=== PATIENT | male | born 1960 | race Caucasian/White ===

== ENCOUNTER 2020-02-06 07:59 | Inpatient (IN) | payer OTHER ==
[~2020-02-06] VITALS: Ht 177.8 cm; Wt 84.0 kg
[~2020-02-06 07:59] MED LIST: AMIT25TA9 PO; DULO1CAP5 PO; IBUP800T24 PO; LISI-648 PO; MORP1TAB12 PO; OMEP20TA PO
[2020-02-06] MEDS ORDERED: PREGABALIN CAPSULE 75 MG CAP PO ONE (08:15)
[2020-02-06] MEDS ORDERED: CELECOXIB 100 MG CAP PO ONE (08:15)
[2020-02-06] MEDS ORDERED: ACETAMINOPHEN IV 1000 MG/100ML (10MG/ML) IV ONE (08:15)
[2020-02-06] MEDS ORDERED: ceFAZolin 1GM/50ML 100 ML IV ONE (08:43)
[2020-02-06] MEDS: BUPIVACAINE 0.25% INJ 50ML VIAL ONE ×2 (09:26→12:40)
[2020-02-06] MEDS ORDERED: TRANEXAMIC ACID 20 ML ONE (09:26)
[2020-02-06] MEDS: VANCOMYCIN HCL 1000 MG VL ONE ×2 (09:27→12:35)
[2020-02-06] MEDS ORDERED: KETOROLAC TROMETH 30 MG/ML 1ML VIAL ONE (09:29)
[2020-02-06] MEDS ORDERED: MORPHINE SULF(PF) 0.5MG/ML 10ML VIAL ONE (09:29)
[2020-02-06] MEDS ORDERED: SUCCINYLCHOLINE CHLORIDE 20 MG/ML 10ML VIAL IV ONE (10:26)
[2020-02-06] MEDS ORDERED: LIDOCAINE HCL (LOCAL ANESTH.) 0.5 % 50ML MDV IJ ONE (10:26)
[2020-02-06] MEDS ORDERED: MIDAZOLAM HCL 1MG/1ML-2 ML VIAL ONE (10:28)
[2020-02-06] MEDS ORDERED: METOCLOPRAMIDE HCL 5MG/ml INJ 2ml VIAL ONE (10:29)
[2020-02-06] MEDS ORDERED: ETOMIDATE (2MG/ML) 20ML VIAL IV ONE (10:31)
[2020-02-06] MEDS ORDERED: ROCURONIUM 10MG/ML 10ML VIAL IV ONE (10:32)
[2020-02-06] MEDS ORDERED: fentaNYL CITRATE 100 MCG/2 ML VL ONE (10:33)
[2020-02-06] MEDS ORDERED: DexAMETHasone SOD PHOS 10MG/1ML VIAL INJ ONE (10:46)
[2020-02-06] MEDS ORDERED: NALOXONE HCL 0.4 MG/ML VIAL IV PRN (11:00)
[2020-02-06] MEDS ORDERED: ONDANSETRON HCL 4 MG/2 ML VIAL IV PRN ×2 (11:00→12:45)
[2020-02-06] MEDS ORDERED: HYDROmorphone HCL 2 MG/ML VL IV PRN (11:00)
[2020-02-06] MEDS ORDERED: PROMETHAZINE HCL 25 MG/ML 1ML IV PRN (11:00)
[2020-02-06] MEDS ORDERED: MEPERIDINE HCL (50 MG/ML) 1 ML VIAL ONE (11:05)
[2020-02-06] MEDS ORDERED: NEOSTIGMINE 1 MG/ML INJ (10mg/10ML VIAL) ONE (12:37)
[2020-02-06] MEDS ORDERED: GLYCOPYRROLATE 0.2 MG/ML 1ML VIAL ONE (12:37)
[2020-02-06] MEDS ORDERED: OXYCODONE W/ ACETAMINOPHEN 5/325MG TABLET PO PRN (12:45)
[2020-02-06] MEDS ORDERED: MORPHINE SULF INJ 2 MG/ML SYRINGE 1ML IV PRN (12:45)
[2020-02-06] MEDS ORDERED: NITROGLYCERIN 0.4 MG SL TAB SL PRN (12:45)
[2020-02-06] MEDS ORDERED: ACETAMINOPHEN 325 MG TAB PO PRN (12:45)
[2020-02-06] MEDS ORDERED: traMADol HCL 50 MG TAB PO PRN (13:00)
[2020-02-06] MEDS ORDERED: DOCUSATE SOD 100 MG CAP PO ONE (13:00)
[2020-02-06] MEDS ORDERED: ENOXAPARIN SOD 40 MG/0.4 ML SYRINGE SC ONE (13:00)
[2020-02-06] MEDS: HYDROmorphone HCL 2 MG/ML VL IV PRN ×6 (13:20→20:55)
[2020-02-06 16:30] VITALS: BP 148/74
--- NOTE | 2020-02-06 16:30 | NUR ---
Telemetry admit from OR JESSICA JACOB admitted to Telemetry unit after SBAR received. Patient s/p left total shoulder replacement. Dressing clean, dry, intact. Patient oriented to VICKY MCKEON RN primary RN, unit, room, bed, and unit policies regarding patient care and visiting hours. Patient now on continuous telemetry monitoring, tele box # 49 and telemetry reading on arrival to unit is Sinus Tach 103 HR. Patient placed on bedside oxygen, weighed by bedscale and encouraged to call if they need something. All questions and concerns addressed, patient verbalized understanding.
[2020-02-06 17:00] VITALS: BP 148/74
[2020-02-06] MEDS: SODIUM CHLOR 0.9% PF (SALINE LOCK) 10ML VIAL/SYR IV SCH ×2 (17:25→22:17)
[2020-02-06] MEDS: LACTATED RINGER'S 1,000 ML IV SCH ×2 (17:25→22:45)
[2020-02-06] MEDS: ceFAZolin 1GM/50ML 50 ML IV SCH ×2 (17:25→17:48)
[2020-02-06] MEDS: DULoxetine HCL 30 MG CAP PO SCH ×2 (17:26→22:17)
[2020-02-06] MEDS: MORPHINE SULFATE 10 MG/5 ML ORAL SOLN PO SCH ×2 (17:26→22:17)
[2020-02-06] MEDS: KETOROLAC TROMETH 30 MG/ML 1ML VIAL IV SCH (17:47)
[2020-02-06] MEDS ORDERED: KETOROLAC TROMETH 30 MG/ML 1ML VIAL IV PRN (18:00)
[2020-02-06 22:00] VITALS: BP 106/72
[2020-02-06] MEDS ORDERED: LISINOPRIL 10 MG TAB PO SCH (22:00)
[2020-02-06] MEDS ORDERED: AMITRIPTYLINE HCL 25 MG TAB PO SCH (22:00)
[2020-02-06] MEDS: DOCUSATE SOD 100 MG CAP PO SCH (22:17)
[2020-02-06] MEDS: MORPHINE SULF 15mg ER tab PO SCH (22:18)
[2020-02-07] MEDS: ceFAZolin 1GM/50ML 50 ML IV SCH (01:13)
[2020-02-07] MEDS: HYDROmorphone HCL 2 MG/ML VL IV PRN ×3 (01:46→07:58)
[2020-02-07 05:00] VITALS: BP 118/64
[2020-02-07] MEDS: SODIUM CHLOR 0.9% PF (SALINE LOCK) 10ML VIAL/SYR IV SCH ×2 (06:09→14:59)
[2020-02-07] MEDS: KETOROLAC TROMETH 30 MG/ML 1ML VIAL IV SCH ×3 (06:09→12:06)
[2020-02-07] MEDS: MORPHINE SULFATE 10 MG/5 ML ORAL SOLN PO SCH ×2 (06:10→14:58)
[2020-02-07] MEDS: DULoxetine HCL 30 MG CAP PO SCH ×2 (06:10→14:56)
--- NOTE | 2020-02-07 07:30 | NUR ---
Opening Shift Note Received report and assumed care of patient, awake and alert. No S/S of distress/SOB but c/o pain. Instructed on POC,nursing routines,call light within reach patient reminded instructed to call for assistance and PRN, will continue to monitor for changes Q1hr and PRN.
[2020-02-07 07:45] LABS: Hematocrit 39.9 % (41.0-53.0); Hemoglobin 13.3 g/dL (13.5-17.5)
[2020-02-07 08:03] LABS: Potassium 4.2 mmol/L (3.5-5.1)
[2020-02-07 08:13] LABS: Albumin 3.4 g/dL (3.4-5.0); BUN/Creatinine Ratio 17.3; Bilirubin, Total 0.7 mg/dL (0.2-1.0); Calcium 8.2 mg/dL (8.5-10.1); Total Protein 6.1 g/dL (6.4-8.2)
[2020-02-07] MEDS: LACTATED RINGER'S 1,000 ML IV SCH (08:45)
[2020-02-07 09:00] VITALS: BP 109/72
--- NOTE | 2020-02-07 09:00 | NUR ---
ORTHOPEDIC STAFF HERE TO ADJUST SLING/IMMOBILIZER
[2020-02-07] MEDS ORDERED: PANTOPRAZOLE 40 MG TAB PO SCH (10:00)
[2020-02-07] MEDS ORDERED: ENOXAPARIN SOD 40 MG/0.4 ML SYRINGE SC SCH (10:00)
[2020-02-07] MEDS: MORPHINE SULF 15mg ER tab PO SCH (10:34)
[2020-02-07] MEDS: DOCUSATE SOD 100 MG CAP PO SCH (10:34)
--- NOTE | 2020-02-07 11:25 | NUR ---
ERIC CALLED (PASSWORD VERIFIED) INFORMED AND UPDATED WIP PLAN OF CARE,DISCHARGE PLAN AND AWAITING FOR HOME HEALTH ARRANGEMENT
--- NOTE | 2020-02-07 11:50 | NUR ---
Attempted PT treatment. Pt states he was already up walking to bathroom and would like to rest.
[2020-02-07 13:00] VITALS: BP 131/67
--- NOTE | 2020-02-07 14:33 | NUR ---
assessment Patient is a 59 year old male who is alert and oriented. Patients cognitive abilities are intact. Prior to admission patient lived home with family and functioned independently. Patient informed me he is able to care for his own ADLs. Per patient he will return home to his prior living arrangements post discharge and family will transport him home. Patient has a shoulder replacement (Left). Patient is right handed. Patient informed me he will have help once he is home. Patients PCP is Dr Shanks. Patient feels safe returning home on discharge. Patient has no post discharge needs identified at this time. I informed patient he has a right to speak to a social service coordinator regarding all care. I informed patient he has a right to participate in any and all discharge planning. Patient does not have a POA and advanced directive. I have offered patient information on POA and advanced directives. I informed the patient the advantages and benefits of having an Advanced Directive. Patient verbalized understanding and agreed to discharge plan. Addendum: 02/07/20 at 1439 by Sherrill MONK Amended: Links added.
[2020-02-07 15:16] VITALS: BP 131/67
--- NOTE | 2020-02-07 15:45 | NUR ---
CALLED INFORMED OF PATIENT DISCHARGE
--- NOTE | 2020-02-07 16:20 | NUR ---
Discharge instructions given as ordered. Encourage to follow up with PMD and as instructed. All questions and concerns addressed. Patient verbalized understanding. Medication reconciliation form completed and copy given to patient. IV removed with catheter intact, pressure dressing applied. Telemetry unit returned to ICU. Patient taken to vehicle via wheelchair with all personal belongings, accompanied by staff ,family member at front lobby for pickler helper. No distress noted at time of departure.
== END 2020-02-07 16:20 | disposition home health service (06) | DRG 483 ==
LOC: OVERFLOW 07:59 → EDSTATUS 12:00 → WEST WING 16:21 → TELE-WESTW 16:30
PROVIDERS: ADMIT Orthopaedic Surgery Adult Reconstructive Orthopaedic Surgery; ATTEND Hospitalist
PROC: 0LS40ZZ Reposition Left Upper Arm Tendon, Open Approach (ICD-10-PCS; 2020-02-06)
PROC: 0RRK00Z Replacement of Left Shoulder Joint with Reverse Ball and Socket Synthetic Substitute, Open Approach (ICD-10-PCS; principal; 2020-02-06 10:22)
DX: T84.098A Other mechanical complication of other internal joint prosthesis, initial encounter (principal); M75.102 Unspecified rotator cuff tear or rupture of left shoulder, not specified as traumatic; Z96.612 Presence of left artificial shoulder joint; Y83.8 Other surgical procedures as the cause of abnormal reaction of the patient, or of later complication, without mention of misadventure at the time of the procedure; Z20.828 Contact with and (suspected) exposure to other viral communicable diseases; M19.112 Post-traumatic osteoarthritis, left shoulder; Y92.89 Other specified places as the place of occurrence of the external cause; Z91.040 Latex allergy status
CPT/HCPCS: 36415; 73020; 80053; 85014; 85018; 86850; 86900; 86901; 97163; G0378; J0131; J0330; J0690; J1100; J1885; J2250; J3490

== ENCOUNTER 2024-11-02 23:38 | Inpatient (IN) | payer OTHER, MEDICAID ==
[~2024-11-02] VITALS: Ht 177.8 cm; Wt 90.7 kg
[~2024-11-02 23:38] MED LIST changes: +AMIT25TA20 PO; -AMIT25TA9 PO; +IBUP-1456 PO; -IBUP800T24 PO; -LISI-648 PO; +LISI10TA34 PO
--- NOTE | 2024-11-03 00:18 | ED.PDOC ---
HPI Comments 63 year old male presents to the ED via EMS with a chief complaint of chest pain onset today (11/02/24) about 1 hour prior to ED arrival. Patient began experiencing Lt sided chest pain radiating to LT arm, rates pain 9/10. Patient states for the past day he had been experiencing nausea/vomiting, shortness of breath, lightheadedness, palpitations. Upon EMS arrival BP was 166/100, 1 tab of Nitro and 324 mg of Aspirin was given prior to ED arrival. PMHx HTN, DM, HLD - patient is not complaint with medication. Denies fevers, chills, cough, congestion, dysuria, hematuria, hematemesis, melena. No other symptoms or modifying factor present at this time. Chief Complaint: Chest Pain Time Seen by MD: 00:05 Reviewed Notes: Medications, Allergies Allergies: Coded Allergies: Latex (Verified Allergy, Unknown, 02/01/20) BLISTERS Uncoded Allergies: ADHESIVES (Allergy, Unknown, 02/01/20) BLISTERS Home Meds Reported Medications Ibuprofen (Ibuprofen) 800 Mg Tab, 800 MG PO PRN, MG 02/01/20 Amitriptyline Hcl (Amitriptyline Hcl) 25 Mg Tab, 25 MG PO HS for 30 Days, MG 02/01/20 Morphine Sulfate (Morphine Sulfate Cr) 15 Mg Tab, 15 MG PO TID, TAB 02/01/20 Morphine Sulfate (Morphine Sulfate Er) 15 Mg Tab, 15 MG PO BID, TAB 02/01/20 Lisinopril (Lisinopril) 10 Mg Tab, 10 MG PO HS for 30 Days, MG 02/01/20 Duloxetine HCl (Duloxetine HCl) 30 Mg Cap, 30 MG PO TID, CAP 02/01/20 Omeprazole (Gnp Omeprazole) 20 Mg Tab, 1 TAB PO DAILY, #90 TAB 1 Refill 02/01/20 Information Source: Patient, Emergency Med Personnel Mode of Arrival: EMS Severity: Moderate Timing: Hours Duration: Since onset Prehospital treatment: Other (Nitro, Aspirin ) Location: Chest (L) Radiation: Arm (L) Quality: Sharp Onset: At Rest Cardiac Risk Factors: Hyperlipidemia, HTN, Diabetes PE Risk Factors: None History of: None Modifying Factors: Nothing Associated Signs and Symptoms: SOB, Palpitations, N/V Vital Signs Vital Signs Date Time Temp Pulse Resp B/P (MAP) Pulse Ox O2 Delivery O2 Flow Rate FiO2 7/17/25 03:15 99.2 80 20 130/85 (100) 94 99.2 Physical Exam PHYSICAL EXAM: General: Awake, alert and oriented. No acute distress. Skin: Skin in warm, dry and intact. Appropriate color for ethnicity. HEENT: The head is normocephalic and atraumatic. Conjunctivae are clear without exudates or hemorrhage. Sclera is non-icteric. EOM are intact. No signs of nystagmus. Eyelids are normal in appearance without swelling or lesions. Oral mucosa is pink and moist Neck: The neck is supple with normal range of motion. No JVD. Cardiac: Heart rate and rhythm are normal. No murmurs, gallops, or rubs are auscultated. Respiratory: No signs of respiratory distress. Lung sounds are clear in all lobes bilaterally without rales, rhonchi, or wheezes. Abdominal: Abdomen is soft, non-tender without distention, guarding or rigidity. Bowel sounds are present and normoactive in all four quadrants. Extremities: Upper and lower extremities are atraumatic in appearance without deformity or edema. Neurological: The patient is awake, alert and oriented to person, place, and time with normal speech. Speech is clear. There is no facial asymmetry. Psychiatric: Appropriate mood and affect. Good judgement and insight. Review of Systems: As stated in HPI Past Medical History PAST MEDICAL HISTORY: DM, High Lipids, HTN Family History Family History: Reviewed,noncontributory to illness, No family hx of Cancer, No family hx of DM, No family hx of Heart alysia, No family hx of HTN, No family hx ofKidney alysia, No family hx of Liver alysia, No family hx of Lung alysia, No family hx of Stroke Social History Smoker: Non-Smoker Alcohol: Denies ETOH Use Drugs: Denies Drug Use Lives In: Home EKG EKG : Pulse Rate (adult): 75 Cardiac Rhythm: NSR Comments No STEMI Was a procedure done? Was a procedure done?: No CP Differential Dx Differential Diagnosis: Other (Differential diagnoses considered include acute ischemic coronary syndrome, aortic dissection, cardiac tamponade, mediastinitis, pulmonary embolus, pneumothorax, tension pneumothorax, esophageal rupture, coronary artery vasospasm, myocarditis, pericarditis, pneumonia, pulmonary edema, esophageal tear, pancreatitis, aortic stenosis, dilated cardiomyopathy, hypertrophic cardiomyopathy, mitral valve prolapse, malignancy, pleuritis, pneumomediastinum, primary pulmonary hypertension, cholecystitis, esophageal spasm, esophagus, gastritis, GERD, peptic ulcer disease, costochondritis, fibromyalgia, rib fracture, herpes zoster, radicular syndromes, thoracic outlet syndrome, somatization.) X-Ray, Labs, Meds, VS Vital Signs Date Time Temp Pulse Resp B/P (MAP) Pulse Ox O2 Delivery O2 Flow Rate FiO2 11/03/24 03:15 99.2 80 20 130/85 (100) 94 99.2 11/03/24 02:37 77 11/03/24 01:35 97.5 85 20 122/76 (91) 97 97.5 11/03/24 01:35 85 11/03/24 01:17 80 20 122/76 11/03/24 00:45 75 11/03/24 00:43 75 11/02/24 23:45 78 11/02/24 23:40 98.9 95 16 149/82 (104) 98 98.9 Lab Test 11/03/24 03:19 11/03/24 01:18 11/03/24 00:23 Range/Units Troponin I High Sensitivity < 3 L < 3 L < 3 L </=54 ng/L White Blood Count 8.7 4.4-10.8 10^3/uL Red Blood Count 4.74 4.5-5.90 10^6/uL Hemoglobin 14.3 13.5-17.5 g/dL Hematocrit 42.1 41.0-53.0 % Mean Corpuscular Volume 89.0 80.0-100.0 fL Mean Corpuscular Hemoglobin 30.3 28.0-32.0 pg Mean Corpuscular Hemoglobin Concent 34.0 32.0-36.0 g/dL Red Cell Distribution Width 13.6 11.8-14.3 % Platelet Count 261 140-450 10^3/uL Mean Platelet Volume 6.9 6.9-10.8 fL Neutrophils (%) (Auto) 57.6 37.0-80.0 % Lymphocytes (%) (Auto) 33.7 10.0-50.0 % Monocytes (%) (Auto) 6.8 0.0-12.0 % Eosinophils (%) (Auto) 1.4 0.0-7.0 % Basophils (%) (Auto) 0.5 0.0-2.0 % Neutrophils # (Auto) 5.0 1.6-8.6 10 ^3/uL Lymphocytes # (Auto) 2.9 0.4-5.4 10 ^3/uL Monocytes # (Auto) 0.6 0-1.3 10 ^3/uL Eosinophils # (Auto) 0.1 0-0.8 10 ^3/uL Basophils # (Auto) 0 0-0.2 10 ^3/uL Nucleated Red Blood Cells 0.1 % Sodium Level 139 136-145 mmol/L Potassium Level 4.1 3.5-5.1 mmol/L Chloride Level 105 98-107 mmol/L Carbon Dioxide Level 28 20-31 mmol/L Anion Gap 6 5-15 Blood Urea Nitrogen 10 9-23 mg/dL Creatinine 1.13 0.700-1.30 mg/dL Glomerular Filtration Rate Calc 73 >90 mL/min BUN/Creatinine Ratio 8.8 L 10.0-20.0 Serum Glucose 122 H 74-106 mg/dL Calcium Level 9.6 8.7-10.4 mg/dL B-Type Natriuretic Peptide 15.00 0-100 pg/mL Current Medications Medications (Trade) Dose Ordered Sig/Chidi Route Start Time Stop Time Status Last Admin Morphine Sulfate 2 mg ONCE ONCE IV 11/03/24 00:15 11/03/24 00:16 DC 11/03/24 01:17 Acetaminophen (Tylenol Tablet Or Capsule) 1,000 mg ONCE ONCE PO 11/03/24 00:15 11/03/24 00:16 DC 11/03/24 01:17 Time of 1ST Reevaluation: 00:35 Reevaluation 1ST: Unchanged Patient Education/Counseling: Need For Follow Up Family Education/Counseling: No Family Present SEPSIS Sepsis Screen Physician Orders Electrocardigram (11/02/24 23:49) Electrocardigram (11/03/24 02:49) Chest Xray 1 View (11/03/24 00:15) Vital Signs Q1HR (11/03/24 00:15) Vital Signs Date Time Temp Pulse Resp B/P (MAP) Pulse Ox O2 Delivery O2 Flow Rate FiO2 11/03/24 03:15 99.2 80 20 130/85 (100) 94 99.2 11/03/24 02:37 77 11/03/24 01:35 97.5 85 20 122/76 (91) 97 97.5 11/03/24 01:35 85 11/03/24 01:17 80 20 122/76 11/03/24 00:45 75 11/03/24 00:43 75 11/02/24 23:45 78 11/02/24 23:40 98.9 95 16 149/82 (104) 98 98.9 Laboratory Tests Test 11/03/24 00:23 White Blood Count 8.7 10^3/uL (4.4-10.8) Medications Medications Dose Ordered Sig/Chidi Route Start Time Stop Time Status Last Admin Dose Admin Acetaminophen 1,000 mg ONCE ONCE PO 11/03/24 00:15 11/03/24 00:16 DC 11/03/24 01:17 Morphine Sulfate 2 mg ONCE ONCE IV 11/03/24 00:15 11/03/24 00:16 DC 11/03/24 01:17 Departure 1 Departure Time of Disposition: 02:43 Impression: Primary Impression: Chest pain Disposition: ADMITTED INPATIENT Condition: Stable Comments MDM: 63-year-old male with risk factors with continued chest pain during the ED observation. Patient admitted to hospitalist service for further treatment, evaluation and monitoring. Extensive evaluation was performed in attempt to identify or rule out: (See differential diagnosis section) The following tests were ordered, and results were reviewed by me and discussed with patient: (See diagnostic results section) The following test were independently interpreted by me: EKG I reviewed and agreed with the following test results read by other providers: Chest x-ray Additional information was gathered from interviewing the following independent historians: EMS personnel Discussion of management or test interpretation with external physician/other qualified health healthcare liaison: N/A Decision regarding hospitalization or escalation of hospital level of care: Risk and benefits of admission for further treatment of patient's condition was considered. Due to patient's current clinical condition, high risk of decline and poor outcome if discharged and need for further inpatient management and monitoring, patient will be admitted to the hospital. Drug therapy requiring intensive monitoring for toxicity: N/A Parenteral controlled substances: IV morphine Decision regarding elective major surgery with identified patient or procedure risk factors: N/A Decision regarding emergency major surgery: N/A Decision not to resuscitate or to de-escalate care because of poor prognosis: N/A Diagnosis or treatment significantly limited by social determinants of health: N/A Critical Care Note Critical Care Time?: No Stability Stability form required: No Heart Score Heart Score: Heart Score Response (Comments) Value History Slightly Suspicious 0 EKG Repolarization Disturb 1 Age 45-64 1 Risk Factors 1 or 2 risk factors 1 Troponin Normal limit 0 Total 3 I personally scribed for SCARLETT MARTINEZ MD ([email or web address]) on 11/03/24 at 00:18. Electronically submitted by Gabi Martin ([email or web address]). I personally scribed for SCARLETT MARTINEZ MD ([email or web address]) on 11/03/24 at 00:45. Electronically submitted by Gabi Martin ([email or web address]). SCARLETT MARTINEZ MD Nov 03, 2024 00:18
[2024-11-03 00:36] LABS: Hematocrit 42.1 % (41.0-53.0); Hemoglobin 14.3 g/dL (13.5-17.5); Mean Corpuscular Hemoglobin 30.3 pg (28.0-32.0); Mean Corpuscular Volume 89.0 fL (80.0-100.0); Nucleated Red Blood Cells % 0.1 %
--- NOTE | 2024-11-03 01:06 | DVH ---
CHEST RADIOGRAPH Indication: cp Technique: Single frontal view of the chest was obtained COMPARISON: None FINDINGS: Lines and Tubes: None Lungs: Clear Pleura: No effusion. No pneumothorax. Cardiomediastinal contours: Unremarkable Bones: Unremarkable. Hardware within the left shoulder status post arthroplasty. Spinal cord stimula tor leads noted. IMPRESSION: 1. No acute disease.
[2024-11-03] MEDS: ACETAMINOPHEN 500 MG TAB or CAP PO ONE (01:17)
[2024-11-03] MEDS: MORPHINE SULFATE INJ 2 MG/ml SYRG IV ONE (01:17)
--- NOTE | 2024-11-03 01:33 | ECG ---
[facility] Test Date: 2024-11-03 Test Time: 00:43:41 Pat Name: JESSICA JACOB Department: ED Room: Gender: M Carbonizer Tester: ALEJANDRA : 1960 Requested By: EMERGENCY EMERGENCY Order Number: [id number] Reading MD: Measurements Intervals [place] Rate: 75 P: 40 IA: 156 QRS: 23 QRSD: 84 T: 26 QT: 382 QTc: 427 Interpretive Statements Sinus rhythm Probable left atrial enlargement Borderline repolarization abnormality Please click the below link to view image of tracing.
[2024-11-03 01:59] LABS: Chloride 105 mmol/L (98-107); Potassium 4.1 mmol/L (3.5-5.1); Sodium 139 mmol/L (136-145)
[2024-11-03 02:00] LABS: Anion Gap 6 (5-15); Calcium 9.6 mg/dL (8.7-10.4); Carbon Dioxide 28 mmol/L (20-31)
[2024-11-03 02:05] LABS: BUN/Creatinine Ratio 8.8 (10.0-20.0); Blood Urea Nitrogen 10 mg/dL (9-23)
[2024-11-03 02:08] LABS: Glucose 122 mg/dL (74-106)
[2024-11-03] MEDS ORDERED: NITROGLYCERIN 0.4 MG SL TAB SL PRN (03:30)
--- NOTE | 2024-11-03 04:09 | DVHHP2 ---
History of Present Illness Reason for Visit: Chest pain History of Present Illness 63-year-old male presents for evaluation of chest pain. Patient presents with a one day history of left-sided pressure-like chest pain that radiates to his left arm with associated nausea. Denies shortness or breath, cough or fever. Past Medical History Hypertension and diabetes mellitus Past Surgical History Shoulder surgery, knee surgery, back surgery Family History Noncontributory Smoke: No ALCOHOL: none Drugs: None Lives: with Family Review of Systems Review of Systems Review of systems are currently negative otherwise addressed in HPI. Allergies: Coded Allergies: Latex (Verified Allergy, Unknown, 02/01/20) BLISTERS Uncoded Allergies: ADHESIVES (Allergy, Unknown, 02/01/20) BLISTERS Medications Current Medications Medications Dose Ordered Sig/Chidi Route Start Time Stop Time Status Last Admin Dose Admin Acetaminophen/ Hydrocodone Bitart 1 tab Q4HP PRN PO 11/03/24 03:30 Ondansetron HCl 4 mg Q4HP PRN IV 11/03/24 03:30 Acetaminophen 650 mg Q6HP PRN PO 11/03/24 03:30 Nitroglycerin 0.4 mg Q5MINP PRN SL 11/03/24 03:30 Morphine Sulfate 2 mg Q30M PRN IV 11/03/24 03:30 Aspirin 81 mg DAILY PO 11/03/24 10:00 Atorvastatin Calcium 10 mg HS PO 11/03/24 22:00 Exam Vital Signs Vital Signs Date Time Temp Pulse Resp B/P (MAP) Pulse Ox O2 Delivery O2 Flow Rate FiO2 11/03/24 03:15 99.2 80 20 130/85 (100) 94 99.2 Exam Gen: 63-year-old male in no apparent distress. Skin: Warm, dry, normal color and texture, no rash. HEENT: Normocephalic atraumatic, mucous membranes moist and pink. Neck: Cervical and supraclavicular nodes normal without enlargement, trachea is midline, thyroid gland is normal without masses. Pulmonary: Clear to auscultation and percussion bilaterally. Cardiac: Regular rate and rhythm. No murmur Abdomen: Soft, nontender, nondistended, bowel sounds present all 4 quadrants, no guarding, no rigidity, no organomegaly. Extremities: No cyanosis, clubbing, no edema Neuro: Cranial nerves II through XII grossly intact, normal affect and speech, no focal motor deficits. Labs/Xrays ORDERING PHYSICIAN: SCARLETT MARTINEZ MD PROCEDURE(s): CXR1 - CHEST XRAY 1 VIEW REASON: cp ORDER NUMBER(s): [id number], ACCESSION NUMBER(s): [id number] CHEST RADIOGRAPH Indication: cp Technique: Single frontal view of the chest was obtained COMPARISON: None FINDINGS: Lines and Tubes: None Lungs: Clear Pleura: No effusion. No pneumothorax. Cardiomediastinal contours: Unremarkable Bones: Unremarkable. Hardware within the left shoulder status post arthroplasty. Spinal cord stimulator leads noted. IMPRESSION: 1. No acute disease. Electronically Signed by: Pedro Crandall at 10/18 Labs Test 11/03/24 03:19 11/03/24 00:23 Range/Units Troponin I High Sensitivity < 3 L </=54 ng/L White Blood Count 8.7 4.4-10.8 10^3/uL Red Blood Count 4.74 4.5-5.90 10^6/uL Hemoglobin 14.3 13.5-17.5 g/dL Hematocrit 42.1 41.0-53.0 % Mean Corpuscular Volume 89.0 80.0-100.0 fL Mean Corpuscular Hemoglobin 30.3 28.0-32.0 pg Mean Corpuscular Hemoglobin Concent 34.0 32.0-36.0 g/dL Red Cell Distribution Width 13.6 11.8-14.3 % Platelet Count 261 140-450 10^3/uL Mean Platelet Volume 6.9 6.9-10.8 fL Neutrophils (%) (Auto) 57.6 37.0-80.0 % Lymphocytes (%) (Auto) 33.7 10.0-50.0 % Monocytes (%) (Auto) 6.8 0.0-12.0 % Eosinophils (%) (Auto) 1.4 0.0-7.0 % Basophils (%) (Auto) 0.5 0.0-2.0 % Neutrophils # (Auto) 5.0 1.6-8.6 10 ^3/uL Lymphocytes # (Auto) 2.9 0.4-5.4 10 ^3/uL Monocytes # (Auto) 0.6 0-1.3 10 ^3/uL Eosinophils # (Auto) 0.1 0-0.8 10 ^3/uL Basophils # (Auto) 0 0-0.2 10 ^3/uL Nucleated Red Blood Cells 0.1 % Sodium Level 139 136-145 mmol/L Potassium Level 4.1 3.5-5.1 mmol/L Chloride Level 105 98-107 mmol/L Carbon Dioxide Level 28 20-31 mmol/L Anion Gap 6 5-15 Blood Urea Nitrogen 10 9-23 mg/dL Creatinine 1.13 0.700-1.30 mg/dL Glomerular Filtration Rate Calc 73 >90 mL/min BUN/Creatinine Ratio 8.8 L 10.0-20.0 Serum Glucose 122 H 74-106 mg/dL Calcium Level 9.6 8.7-10.4 mg/dL B-Type Natriuretic Peptide 15.00 0-100 pg/mL SEPSIS Sepsis Screen Date sepsis recognized/suspect: Nov 03, 2024 Time Sepsis recognized/suspect: 2339 Recent Procedure: No On Antibiotic Therapy: No Respiratory Rate >20: No Heart Rate >90: Yes Temp<36 C (96.8 F) or >38.3 C: No SBP <90 or MAP <65 mmHG: No New Acute Mental Status Change: No Is the patient on CPAP, BIPAP,: No Physician Orders Electrocardigram (11/02/24 23:49) Electrocardigram (11/03/24 02:49) Chest Xray 1 View (11/03/24 00:15) Vital Signs Q1HR (11/03/24 00:15) Basic Metabolic Panel (11/04/24 04:00) Admit (11/03/24 03:24) Hydrocodone-Acet 5/325mg Tab ([place] 5/32 (11/03/24 03:30) Ondansetron Hcl (Zofran) (11/03/24 03:30) Cardiac Diet-2gna,Lofat,Lochol (11/03/24 Breakfast) Echo 2d Mode Cardiac Dop (11/03/24 03:24) Condition: Fair (11/03/24 03:24) Acetaminophen Tablet (Tylenol Tablet) (11/03/24 03:30) Bedrest With Bathroom Privileg (11/03/24 03:24) Nitroglycerin Sublingual (Ntrostat Subli (11/03/24 03:30) Morphine Sulfate Injection (11/03/24 03:30) Stat Ekg For Chest Pain (11/03/24 03:24) Notify Md Of Changes From Base (11/03/24 03:24) Entertainment Production Professional For 24 Hours (11/03/24 03:24) Emergency Dysrhythmia Protocol (11/03/24 03:24) Rhythm Strips Once Every Shift (11/03/24 03:24) Oxygen By Nasal Cannula (11/03/24 03:24) Aspirin Tablet (11/03/24 10:00) Atorvastatin (Lipitor) (11/03/24 22:00) Vital Signs Date Time Temp Pulse Resp B/P (MAP) Pulse Ox O2 Delivery O2 Flow Rate FiO2 11/03/24 03:15 99.2 80 20 130/85 (100) 94 99.2 11/03/24 02:37 77 11/03/24 01:35 97.5 85 20 122/76 (91) 97 97.5 11/03/24 01:35 85 11/03/24 01:17 80 20 122/76 11/03/24 00:45 75 11/03/24 00:43 75 11/02/24 23:45 78 11/02/24 23:40 98.9 95 16 149/82 (104) 98 98.9 Laboratory Tests Test 11/03/24 00:23 White Blood Count 8.7 10^3/uL (4.4-10.8) Medications Medications Dose Ordered Sig/Chidi Route Start Time Stop Time Status Last Admin Dose Admin Acetaminophen 1,000 mg ONCE ONCE PO 11/03/24 00:15 11/03/24 00:16 DC 11/03/24 01:17 1,000 MG Morphine Sulfate 2 mg ONCE ONCE IV 11/03/24 00:15 11/03/24 00:16 DC 11/03/24 01:17 2 MG Assessment/Plan Assessment/Plan Assessment Chest pain rule out ACS Diabetes mellitus Hypertension Chronic pain Plan Admit the patient to telemetry to the hospitalist Echocardiogram pending Continue treatment per orders. Plan discussed with: Patient My Orders Orders - GAYLE BENNETT AGACNP Procedure Category Date Status Time Basic Metabolic Panel LAB 11/04/24 Verified 04:00 Admit ADMIT 11/03/24 Transmitted 03:24 Hydrocodone-Acet PHA 11/03/24 In Process 5/325mg Tab ([place] 03:30 Ondansetron Hcl PHA 11/03/24 In Process (Zofran) 03:30 Cardiac DIET 11/03/24 Transmitted Diet-2gna,Lofat,Lochol Breakfast Echo 2d Mode Cardiac US 11/03/24 Logged DOP 03:24 Condition: Fair [facility] 11/03/24 In Process 03:24 Acetaminophen Tablet PHA 11/03/24 In Process (Tylenol Tablet) 03:30 Bedrest With Bathroom [facility] 11/03/24 In Process Privileg 03:24 Nitroglycerin [facility] 11/03/24 In Process Sublingual (Ntrostat 03:30 Morphine Sulfate [facility] 11/03/24 In Process Injection 03:30 Stat Ekg For Chest [facility] 11/03/24 In Process Pain 03:24 Notify Md Of Changes [facility] 11/03/24 In Process From Base 03:24 Entertainment Production Professional For [facility] 11/03/24 In Process 24 Hours 03:24 Emergency Dysrhythmia [facility] 11/03/24 In Process Protocol 03:24 Rhythm Strips Once [facility] 11/03/24 In Process Every Shift 03:24 Oxygen By Nasal RT 11/03/24 Transmitted Cannula 03:24 Aspirin Tablet [facility] 11/03/24 In Process 10:00 Atorvastatin (Lipitor) [facility] 11/03/24 In Process 22:00 Date of Service: Nov 03, 2024 Billing Provider: GAYLE BENNETT Common Visit Codes: [id number] INP/OBS CARE (HIGH) GAYLE BENNETT Nov 03, 2024 04:09
--- NOTE | 2024-11-03 05:09 | ECG ---
[facility] Test Date: 2024-11-03 Test Time: 02:37:18 Pat Name: JESSICA JACOB Department: ED Room: [address] [place] [address] Gender: M Tram Driver: ALEJANDRA : 1960 Requested By: EMERGENCY EMERGENCY Order Number: [id number] Reading MD: Measurements Intervals [place] Rate: 77 P: 31 MO: 129 QRS: 27 QRSD: 85 T: 27 QT: 379 QTc: 429 Interpretive Statements Sinus rhythm Nonspecific T abnormalities, anterior leads Please click the below link to view image of tracing.
[2024-11-03] MEDS: HYDROcodone-ACET 5/325MG TAB PO PRN (05:59)
[2024-11-03] MEDS: MORPHINE SULFATE INJ 2 MG/ml SYRG IV PRN (07:23)
[2024-11-03] MEDS: ONDANSETRON HCL 4 MG/2 ML VIAL IV PRN (07:23)
[2024-11-03 07:52] VITALS: PULSE 67; RESP 15; O2SAT 94
[2024-11-03 09:15] LABS: Urine Protein, UAD Negative (Negative)
--- NOTE | 2024-11-03 09:54 | ECG ---
[facility] Test Date: 2024-11-02 Test Time: 23:45:03 Pat Name: JESSICA JACOB Department: ED Room: [address] [place] [address] Gender: M Passenger Solicitor: wili : 1960 Requested By: EMERGENCY EMERGENCY Order Number: [id number] Reading MD: Measurements Intervals [place] Rate: 78 P: 55 MA: 154 QRS: 46 QRSD: 88 T: 43 QT: 402 QTc: 458 Interpretive Statements Sinus rhythm Probable left atrial enlargement Borderline repolarization abnormality Please click the below link to view image of tracing.
--- NOTE | 2024-11-03 13:26 | DVHPN2 ---
Assessment/Plan Assessment/Plan progress note 63 yo M with HTN, NIDDM, admitted for chest pain. patient with worsening pressure like CP aggravated by activity and relieved by rest. no prior workup done. 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 imaging reviewed assessment and plan chest pain likely unstable angina (worsening and 2x last 24 hr) possible CAD HTN NIDDM chronic pain on pain management s/p spinal stim asa, Lipitor start metop hold lisinopril lipid, tsh, a1c ISS cardio consult for ischemic w/o pain mgmt diet cardiac, NPO midnight dvt ppx ambulatory full code Plan discussed with: Patient My Orders Orders - KERLINE KAT MD Procedure Category Date Status Time Atorvastatin (Lipitor) PHA 11/03/24 Logged 22:00 * Cardiology Consult CONS 11/03/24 Transmitted 13:18 Hemoglobin A1c LAB 11/03/24 Logged 13:19 Thyroid Stimulating LAB 11/03/24 Logged Hormone 13:19 Lipid Panel LAB 11/03/24 Logged 13:19 Insulin Lispro PHA 11/03/24 Logged (Human) (Humalog) 17:00 Glucose Blood PHA 11/03/24 Logged (Accu-Chek Comfort 17:00 Dextrose 50% Syringe PHA 11/03/24 Logged 13:30 Metoprolol Xl PHA 11/04/24 Logged Succinate (Toprol Xl) 10:00 Date of Service: Nov 03, 2024 Billing Provider: KERLINE KAT MD Common Visit Codes: [id number] INP/OBS CARE(HIGH) KERLINE KAT MD Nov 03, 2024 13:25
[2024-11-03] MEDS ORDERED: DEXTROSE (50%) 50ML SYRG IV PRN (13:30)
[2024-11-03 13:40] LABS: Triglycerides 254 mg/dL (< 150)
[2024-11-03 13:41] LABS: Cholesterol 150 mg/dL (< 200)
[2024-11-03 13:43] LABS: HDL Cholesterol 39 mg/dL (40-59)
--- NOTE | 2024-11-03 15:13 | DVHINCON2 ---
Date Seen: Nov 03, 2024 Referring Physician MD Ham Reason for Consultation Ischemic workup History of Present Illness This is a 63-year-old male patient who presents to emergency room with chief complaint of chest pain. The patient reports that the chest pain began approximately two nights ago. He describes it as unprovoked, intermittent, sharp in nature, midsternal with radiation down his left arm. Associated symptoms include nausea. Initial twelve lead electrocardiogram reveals normal sinus rhythm with nonspecific ST segment changes to anterior leads. Initial troponin levels have been negative. Significant past medical history includes hypertension, dyslipidemia, type 2 diabetes mellitus, chronic pain, and obesity. He denies any previous cardiac workup. Past Medical History Past medical history reviewed. No other significant than mentioned above. Past Surgical History Right and left shoulder surgery Right ACL repair Multiple back surgery with spinal cord stimulator Unspecified abdominal surgery with hernia mesh Family History Family history reviewed. Social History Patient admits to occasional marijuana use Denies any tobacco use Denies any alcohol use Allergies: Coded Allergies: Latex (Verified Allergy, Unknown, 02/01/20) BLISTERS Uncoded Allergies: ADHESIVES (Allergy, Unknown, 02/01/20) BLISTERS Home Meds Reported Medications Ibuprofen (Ibuprofen) 800 Mg Tab, 800 MG PO PRN, MG 02/01/20 Amitriptyline Hcl (Amitriptyline Hcl) 25 Mg Tab, 25 MG PO HS for 30 Days, MG 02/01/20 Morphine Sulfate (Morphine Sulfate Cr) 15 Mg Tab, 15 MG PO TID, TAB 02/01/20 Morphine Sulfate (Morphine Sulfate Er) 15 Mg Tab, 15 MG PO BID, TAB 02/01/20 Lisinopril (Lisinopril) 10 Mg Tab, 10 MG PO HS for 30 Days, MG 02/01/20 Duloxetine HCl (Duloxetine HCl) 30 Mg Cap, 30 MG PO TID, CAP 02/01/20 Omeprazole (Gnp Omeprazole) 20 Mg Tab, 1 TAB PO DAILY, #90 TAB 1 Refill 02/01/20 Home Meds Home medications reviewed. Current Medications Current Medications Medications (Trade) Dose Ordered Sig/Chidi Route PRN Reason Start Time Stop Time Status Last Admin Acetaminophen/ Hydrocodone Bitart (Lorane 5/325MG Tab) 1 tab Q4HP PRN PO MODERATE PAIN (4-6 PAIN SCALE) 11/03/24 03:30 11/03/24 14:36 DC 11/03/24 14:12 Ondansetron HCl (Zofran) 4 mg Q4HP PRN IV NAUSEA / VOMITING 11/03/24 03:30 11/03/24 07:23 Acetaminophen (Tylenol Tablet) 650 mg Q6HP PRN PO PAIN SCALE 1-3 OR TEMP>100.4 11/03/24 03:30 Nitroglycerin (Ntrostat Sublingual) 0.4 mg Q5MINP PRN SL FOR CHEST PAIN 11/03/24 03:30 11/03/24 10:38 DC Morphine Sulfate 2 mg Q30M PRN IV FOR CHEST PAIN 11/03/24 03:30 11/03/24 10:38 DC 11/03/24 07:23 Aspirin 81 mg DAILY PO 11/03/24 10:00 11/03/24 10:10 Atorvastatin Calcium (Lipitor) 10 mg HS PO 11/03/24 22:00 11/03/24 13:19 DC Atorvastatin Calcium (Lipitor) 40 mg HS PO 11/03/24 22:00 UNV Insulin Human Lispro (HumaLOG) AC SC 11/03/24 17:00 UNV Diagnostic Test (Pha) (Accu-Chek Comfort Curve T) 1 strip ACHS 11/03/24 17:00 UNV Dextrose 50 ml UD PRN IV Blood Sugar LESS THAN 60 11/03/24 13:30 UNV Metoprolol Succinate (Toprol Xl) 25 mg DAILY PO 11/04/24 10:00 UNV Morphine Sulfate (Oramorph Sustained Release Tab) 15 mg Q8HR PRN PO PAIN SCALE 7 THRU 10 11/03/24 14:45 UNV Review of Systems Constitutional: No symptom reported Ears, Nose, & Throat: No symptom reported Eyes: No symptom reported Neurological: No symptoms reported Pulmonary/Respiratory: No symptoms reported Cardiovascular: Chest pain Gastrointestinal: No symptom reported Genitourinary: No symptom reported Musculoskeletal: No symptom reported Skin: No symptom reported Psychiatric: No symptom reported Endocrine: No symptom reported Hematologic/Lymphatic: No symptom reported Vital Signs Vital Signs Date Time Temp Pulse Resp B/P (MAP) Pulse Ox O2 Delivery O2 Flow Rate FiO2 11/03/24 12:00 66 11/03/24 12:00 98.0 15 105/70 (82) 95 98.0 11/03/24 07:52 Room Air* 0 21 Physical Exam General Appearance: Cooperative. Well-developed. Well-nourished. No acute distress. Pulmonary/Respiratory: Clear, bilateral breaths sounds. Cardiovascular/Chest: Regular rate and rhythm. Peripheral Pulses: 2+ Radial (R). 2+ Radial (L). 2+ Pedal (R). 2+ Pedal (L) Abdominal Exam: Normal bowel sounds. Ankle Exam: Negative ankle edema Lower extremities: Negative lower extremity edema Neuro/Mental Status: A/OX4, coherent. Thoughts/Psych: Normal thought pattern. Appropriate mood and affect. Good judgment and insight. Appearance: No acute distress. Skin Exam: Normal inspection. Normal color. Warm and dry. Labs/Diagnostic Data Labs Test 11/03/24 07:15 11/03/24 03:19 11/03/24 00:23 Range/Units Urine Color Light-yellow Yellow Urine Clarity Clear Clear Urine pH 5.5 5.0-9.0 Urine Specific [place] 1.016 1.001-1.035 Urine Protein Negative Negative Urine Ketones Negative Negative Urine Blood Negative Negative /uL Urine Nitrite Negative Negative Urine Bilirubin Negative Negative Urine Urobilinogen Normal Negative mg/dL Urine Leukocyte Esterase Negative Negative /uL Urine RBC 1 0 - 3 /hpf Urine Microscopic WBC < 1 0-3 /HPF Urine Squamous Epithelial Cells None seen <5 /hpf Urine Bacteria None seen None Seen /hpf Urine Hyaline Casts Few 0 - 2 /lpf Urine Mucus Few None Seen Urine Glucose Normal Normal mg/dL Troponin I High Sensitivity < 3 L </=54 ng/L White Blood Count 8.7 4.4-10.8 10^3/uL Red Blood Count 4.74 4.5-5.90 10^6/uL Hemoglobin 14.3 13.5-17.5 g/dL Hematocrit 42.1 41.0-53.0 % Mean Corpuscular Volume 89.0 80.0-100.0 fL Mean Corpuscular Hemoglobin 30.3 28.0-32.0 pg Mean Corpuscular Hemoglobin Concent 34.0 32.0-36.0 g/dL Red Cell Distribution Width 13.6 11.8-14.3 % Platelet Count 261 140-450 10^3/uL Mean Platelet Volume 6.9 6.9-10.8 fL Neutrophils (%) (Auto) 57.6 37.0-80.0 % Lymphocytes (%) (Auto) 33.7 10.0-50.0 % Monocytes (%) (Auto) 6.8 0.0-12.0 % Eosinophils (%) (Auto) 1.4 0.0-7.0 % Basophils (%) (Auto) 0.5 0.0-2.0 % Neutrophils # (Auto) 5.0 1.6-8.6 10 ^3/uL Lymphocytes # (Auto) 2.9 0.4-5.4 10 ^3/uL Monocytes # (Auto) 0.6 0-1.3 10 ^3/uL Eosinophils # (Auto) 0.1 0-0.8 10 ^3/uL Basophils # (Auto) 0 0-0.2 10 ^3/uL Nucleated Red Blood Cells 0.1 % Sodium Level 139 136-145 mmol/L Potassium Level 4.1 3.5-5.1 mmol/L Chloride Level 105 98-107 mmol/L Carbon Dioxide Level 28 20-31 mmol/L Anion Gap 6 5-15 Blood Urea Nitrogen 10 9-23 mg/dL Creatinine 1.13 0.700-1.30 mg/dL Glomerular Filtration Rate Calc 73 >90 mL/min BUN/Creatinine Ratio 8.8 L 10.0-20.0 Serum Glucose 122 H 74-106 mg/dL Hemoglobin A1c 6.9 H <5.7 % A1C Calcium Level 9.6 8.7-10.4 mg/dL B-Type Natriuretic Peptide 15.00 0-100 pg/mL Triglycerides Level 254 H < 150 mg/dL Cholesterol Level 150 < 200 mg/dL LDL Cholesterol 95 < 100 mg/dL HDL Cholesterol 39 L 40-59 mg/dL Thyroid Stimulating Hormone (TSH) 2.11 0.55-4.78 uIU/mL Assessment Chest pain, rule out coronary ischemia Rule out structural heart disease Hypertension Dyslipidemia Type 2 diabetes mellitus Chronic back pain Obesity Plan/Recommendation We will continue with the following plan/recommendations (Dr. Orlando): * Transthoracic echocardiogram to evaluate cardiac function * Chest pain protocol * HEART score: 4 points (moderate score) * Blood pressure control and lipid-lowering agent * Close Cardiac surveillance * Nuclear stress test Thank you for allowing us to care for this patient. Please call with any questions or concerns. Critical care time spent: 44 minutes This medical document was created using an electronic medical record system with voice recognition software and computerized dictation system. Although this document has been carefully reviewed, there might still be some phonetic and typographical errors. Occasional wrong-word or ``sound-alike substitutions may have occurred due to the inherent limitations of voice recognition software. These areas are purely typographical due to imperfections of the software programs and do not reflect any compromise in the patient's medical care. Please read the chart carefully and recognize, using context, where these substitutions have occurred. Plan discussed with: Patient NYHA Physical activity limitations: NA Date of Service: Nov 03, 2024 Billing Provider: AUGIE GARNER Cardiology Common Codes: [id number] INP/OBS CARE (High) Cardiology Consultation Codes: [id number] CONSULT <45MIN AUGIE GARNER Nov 03, 2024 15:13
[2024-11-03] MEDS: MORPHINE SULF 15mg ER tab PO PRN (15:27)
[2024-11-03 16:08] LABS: Opiate Scree,Urine Pos (NEGATIVE)
[2024-11-03 16:10] LABS: Amphetamine Screen, Urine Neg (NEGATIVE); Barbiturate Scree,Urine Neg (NEGATIVE); Benzodiazephine Screen, Urine Neg (NEGATIVE); Cannabinoid Screen, Urine Neg (NEGATIVE); Cocaine Screen, Urine Neg (NEGATIVE); Phencyclidine Screen, Urine Neg (NEGATIVE)
[2024-11-03] MEDS: ACCU-CHEK COMFORT CURVE STRIP VI SCH (17:00)
[2024-11-03] MEDS: INSULIN LISPRO (HUMAN) 100 UNITS/ML ML SC SCH (17:00)
[2024-11-03 18:23] VITALS: BP 132/85; PULSE 78; RESP 20; TEMP 98.2; O2SAT 95
--- NOTE | 2024-11-03 18:27 | DVHSR ---
APPROVED REPORT EXAM: Two-dimensional and M-mode echocardiogram with Doppler and color Doppler. Blood Pressure: 132/80 mmHg INDICATION Chest Pain RISK FACTORS Height: 5'10", Weight: 200 DIMENSIONS LVDd5.1 (3.8-5.7cm)LA (2D)4.0 (1.9-4.0cm)Aortic Root3.8 (2.0-3.7cm) LVDs3.6 (2.5-4.0cm)LA (MM) (1.9-4.0cm)Aortic Cusp Exc1.7 (1.5-2.0cm) EF (%) 53.0 (55-70%)Rt. Atrium4.0 (1.9-4.0cm)Asc. Aorta cm IVSd1.1 (0.7-1.1cm)RV (D)4.0 (1.8-2.4cm) PWd1.2 (0.7-1.1cm) Mitral Valve MitralMitral Stenosis E wave0.59m/sMV Mean GR.mmHg A wave0.67m/sMV Peak GR.mmHg E/A ratio0.92D MVAcm2 DECEL [id number] 1/2 Timems Aortic Valve Aortic ValveAortic Stenosis V10.86m/Tesfaye Mean GR.3mmHg V21.22m/Tesfaye Peak GR.6mmHg LVOT Diameter2.1 (1.8-2.4cm)Doppler AVA2.44cm2 Pulmonic Valve V20.75m/s Tricuspid Valve TR Velocity2.49m/s [id number] Other Information Quality : Technically LimitedRhythm : Conclusion LVEF borderline at 45-50%, global hypokinesis Right ventricle mildly dilated, normal function Mild left and right atrial dilation No significant valve disease
[2024-11-03 18:34] VITALS: BP 132/85; PULSE 78; RESP 20; TEMP 98.2; O2SAT 95
[2024-11-03 20:00] VITALS: PULSE 73; PULSE 75; RESP 17; O2SAT 94
[2024-11-03 21:00] VITALS: BP 123/77; PULSE 75; RESP 17; TEMP 97.8; O2SAT 94
[2024-11-03] MEDS: ATORVASTATIN 20 MG TAB PO SCH (21:21)
[2024-11-03] MEDS ORDERED: ATORVASTATIN 20 MG TAB PO SCH (22:00)
[2024-11-04] VITALS (14 sets, daily range): BP systolic 96–132; BP diastolic 58–89; PULSE 60–78; RESP 16–18; TEMP 97.6–98.5; O2SAT 94–98
[2024-11-04] MEDS: ACETAMINOPHEN 325 MG TAB PO PRN (05:25)
[2024-11-04 06:31] LABS: Chloride 102 mmol/L (98-107); Potassium 4.0 mmol/L (3.5-5.1); Sodium 139 mmol/L (136-145)
[2024-11-04 06:32] LABS: Anion Gap 7 (5-15); Carbon Dioxide 30 mmol/L (20-31)
[2024-11-04 06:33] LABS: Calcium 9.0 mg/dL (8.7-10.4)
[2024-11-04 06:38] LABS: BUN/Creatinine Ratio 15.4 (10.0-20.0); Blood Urea Nitrogen 16 mg/dL (9-23)
[2024-11-04 06:41] LABS: Glucose 112 mg/dL (74-106)
[2024-11-04] MEDS ORDERED: NITROGLYCERIN 0.4 MG SL TAB SL PRN (09:30)
--- NOTE | 2024-11-04 09:34 | DVHPN2 ---
Consult Progress Note Date Seen: Nov 04, 2024 Subjective Review of Systems: CVS:Normal, RESPIRATORY:Normal, NEURO:Normal Objective vital signs Vital Sign Date Time Temp Pulse Resp B/P (MAP) Pulse Ox O2 Delivery O2 Flow Rate FiO2 11/04/24 05:00 97.8 69 18 123/86 (98) 95 97.8 11/03/24 20:00 Room Air* 0 21 Total Intake and Output 11/03/24 11/03/24 11/04/24 15:00 23:00 07:00 Intake Total 0 ml Balance 0 ml medications Current Medications Medications Dose Ordered Sig/Chidi Route Start Time Stop Time Status Last Admin Dose Admin Ondansetron HCl 4 mg Q4HP PRN IV 11/03/24 03:30 11/03/24 07:23 4 MG Acetaminophen 650 mg Q6HP PRN PO 11/03/24 03:30 11/04/24 05:25 650 MG Aspirin 81 mg DAILY PO 11/03/24 10:00 11/03/24 10:10 81 MG Atorvastatin Calcium 40 mg HS PO 11/03/24 22:00 11/03/24 21:21 40 MG Insulin Human Lispro AC SC 11/03/24 17:00 Diagnostic Test (Pha) 1 strip ACHS 11/03/24 17:00 11/04/24 06:11 1 STRIP Dextrose 50 ml UD PRN IV 11/03/24 13:30 Metoprolol Succinate 25 mg DAILY PO 11/04/24 10:00 Morphine Sulfate 15 mg Q8HR PRN PO 11/03/24 14:45 11/03/24 23:48 15 MG Examination: LUNGS:Normal, CVS:Normal, NEURO:Normal laboratory and microbiology Laboratory Tests 11/04/24 05:30 11/03/24 00:23 Test 11/04/24 05:30 Range/Units Serum Glucose 112 H 74-106 mg/dL Problem List/Assessment/Plan Problem List/Assessment/Plan Chest pain rule out coronary ischemia Chronic compensated HFmrEF, newly diagnosed Abnormal 12-lead electrocardiogram Hypertension Dyslipidemia Type 2 diabetes mellitus Chronic back pain Obesity Plan/Recommendation (Dr. Orlando) Transthoracic echocardiogram revealed LVEF 45-50% with global hypokinesis. The patient's risk factors, clinical presentation, 12-lead electrocardiogram changes to anteroseptal leads, and abnormal TTE are concerning for coronary ischemia. Patient scheduled for a coronary angiogram with left cardiac catheterization with Dr. Orlando on 11/04/2024. All risks and benefits of the procedure including risk for LINDA, CVA, bleed, coronary dissection and even were discussed in full detail. He agrees to proceed with intervention. All questions answered. In the meantime, continue single antiplatelet therapy, lipid lowering agent, and beta ye. Initiate GDMT for HFmrEF and uptitrate as tolerated. Monitor ECG changes closely. Continue chest pain protocol. Further orders per clinical course. Thank you for allowing us to care for this patient. Please call with any questions or concerns. Critical care time spent: 44 minutes This medical document was created using an electronic medical record system with voice recognition software and computerized dictation system. Although this document has been carefully reviewed, there might still be some phonetic and typographical errors. Occasional wrong-word or ``sound-alike substitutions may have occurred due to the inherent limitations of voice recognition software. These areas are purely typographical due to imperfections of the software programs and do not reflect any compromise in the patient's medical care. Please read the chart carefully and recognize, using context, where these substitutions have occurred. Plan discussed with: Patient, Other Date of Service: Nov 04, 2024 Billing Provider: JUSTINO ZEE Cardiology Common Codes: [id number] HOSP CARE(High JUSTINO ZEE Nov 04, 2024 09:34
[2024-11-04] MEDS: METOPROLOL SUCCINATE XL 50 MG TAB PO SCH (09:42)
[2024-11-04 10:12] LABS: Hematocrit 43.0 % (41.0-53.0); Hemoglobin 14.7 g/dL (13.5-17.5); Mean Corpuscular Hemoglobin 30.5 pg (28.0-32.0); Mean Corpuscular Volume 89.7 fL (80.0-100.0); Nucleated Red Blood Cells % 0.1 %
[2024-11-04 10:18] LABS: INR 1.03 (0.9-1.15); Partial Thromboplastin Time 26.4 SEC (24.5-34.5); Prothrombin Time 10.9 sec (9.3-11.8)
--- NOTE | 2024-11-04 11:11 | DVHPN2 ---
Assessment/Plan Assessment/Plan progress note 63 yo M with HTN, NIDDM, admitted for chest pain. patient with worsening pressure like CP aggravated by activity and relieved by rest. no prior workup done. seen today. HFmrEF in echo, global hypokinesia. for cath today. CURES reviewed, taking suboxone 8-2 and 2-0.5 daily. restarting. 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 reviewed assessment and plan chest pain likely unstable angina (worsening and 2x last 24 hr) possible CAD HTN NIDDM chronic pain on pain management s/p spinal stim asa, Lipitor start metop hold lisinopril lipid, tsh, a1c ISS cardio consult for ischemic w/o pain mgmt with suboxone pending cath diet cardiac, NPO midnight dvt ppx ambulatory full code Plan discussed with: Patient My Orders Orders - KERLINE KAT MD Procedure Category Date Status Time Atorvastatin (Lipitor) PHA 11/03/24 In Process 22:00 * Cardiology Consult CONS 11/03/24 Transmitted 13:18 Insulin Lispro PHA 11/03/24 In Process (Human) (Humalog) 17:00 Glucose Blood PHA 11/03/24 In Process (Accu-Chek Comfort 17:00 Dextrose 50% Syringe PHA 11/03/24 In Process 13:30 Metoprolol Xl PHA 11/04/24 In Process Succinate (Toprol Xl) 10:00 Date of Service: Nov 04, 2024 Billing Provider: KERLINE KAT MD Common Visit Codes: [id number] INP/OBS CARE(HIGH) KERLINE KAT MD Nov 04, 2024 11:11
[2024-11-04] MEDS: IODIXANOL 320MG/ML 100ML BTL IV ONE ×2 (11:35→13:38)
[2024-11-04] MEDS: HEPARIN IN NS 1000Units/500mL 1,500 ML ONE (13:38)
[2024-11-04] MEDS: fentaNYL CITRATE 100 MCG/2 ML VL ONE (15:06)
[2024-11-04] MEDS: VERAPAMIL 2.5MG/ML INJ 2ML VIAL IV ONE (15:06)
[2024-11-04] MEDS: ANGIOMAX 250 MG VIAL IV ONE (15:06)
[2024-11-04] MEDS: HEPARIN SODIUM (PORCINE) 5000 UNITS/ML 1ML VIAL ONE (15:06)
[2024-11-04] MEDS: SODIUM CHL 0.9% 0 ML ONE (15:07)
[2024-11-04] MEDS: MIDAZOLAM HCL 2MG/2ML 2ml VIAL (1mg/ml) ONE (15:07)
[2024-11-04] MEDS: LIDOCAINE 2%HCL (LOCAL ANESTH.) INJ 20ML MDV ONE (15:07)
--- NOTE | 2024-11-04 17:48 | DVHOP2 ---
Operative Report - 2 Report Details Date: 11/04/24 Preop Diagnosis: CAD Postop Diagnosis: Normal coronaries Surgeon: Danielle Orlando MD Anesthesiologist: Conscious sedation Anesthesia: Mac, Local Consent: The patient was informed of the risks and benefits of the procedure. These include but are not limited to complications of anesthesia, postoperative infection, incomplete relief of symptoms, recurrence of symptoms, damage to blood vessels, nerves and tendons, deep venous thrombosis, pulmonary embolism and possible need for repeat surgery in the future. Complications: No complications Findings: Normal coronaries. Normal end-diastolic pressure. Normal left ventricular function Indications for Surgery: Chest pain Name of Procedure Performed Left heart catheterization bilateral cine coronary angiography. Left ventriculography. Procedure Details Procedure Details: Prior local anesthesia with 2% lidocaine to the right wrist and full informed consent obtained the patient was prepped and draped in usual fashion followed by placement of a six [place] sheath into the radial artery father would by a multipurpose catheter into the left ventricle and right and left coronary ostia without complications. Hemodynamics aortic blood pressure was 130/70. End-diastolic pressure was 20. There was no gradient across the aortic valve on pullback. Coronary anatomy: The RCA is a large vessel it is normal in its proximal mid and distal segments. PDA and posterolateral branches are normal. Left main is large and normal. Left anterior descending is large with no stenosis in its proximal mid or distal segments. The diagonals and septals are free of significant disease. The circumflex is large with two marginals free of significant disease. Impression: Normal left ventricular end-diastolic pressure rest with normal ejection fraction. Recommendations medical therapy is warranted continue risk factor modification. End of dictation. Condition Good Disposition Still a Patient Date of Service: Nov 04, 2024 Billing Provider: DANIELLE ORLANDO Sr., MD Cardiology Common Codes: [id number] INP/OBS CARE (High) Cardiology Procedure Codes: [id number]-WBSA HEART CATH W/INTRA INJ DANIELLE ORLANDO Sr., MD Nov 04, 2024 17:48
[2024-11-04] MEDS: SODIUM CHLORIDE 0.9% 500 ML IV ONE (18:30)
[2024-11-04] MEDS: MORPHINE SULFATE 4 MG/ML SYR/VIAL IV PRN (20:42)
[2024-11-05 05:00] VITALS: BP 127/68; PULSE 66; RESP 17; TEMP 98.6; O2SAT 93
[2024-11-05 08:00] VITALS: PULSE 63
[2024-11-05 08:15] VITALS: BP 127/78; PULSE 64; RESP 18; TEMP 97.9; O2SAT 96
[2024-11-05] MEDS: BUPRENORPHINE -NALOXONE 8-2mg SL TAB SL SCH (08:50)
[2024-11-05] MEDS ORDERED: BUPRENORPHINE -NALOXONE 8-2mg SL TAB SL SCH (10:00)
[2024-11-05] MEDS ORDERED: BUPRENORPHINE -NALOXONE 2-0.5mg SL TAB SL SCH (10:00)
--- NOTE | 2024-11-05 12:37 | DVHPN2 ---
Consult Progress Note Date Seen: Nov 05, 2024 Subjective Review of Systems: CVS:Normal, RESPIRATORY:Normal, NEURO:Normal Objective vital signs Vital Sign Date Time Temp Pulse Resp B/P (MAP) Pulse Ox O2 Delivery O2 Flow Rate FiO2 11/05/24 08:50 64 127/78 11/05/24 08:15 97.9 18 96 97.9 11/05/24 08:00 Room Air* 0 21 medications Current Medications Medications Dose Ordered Sig/Chidi Route Start Time Stop Time Status Last Admin Dose Admin Ondansetron HCl 4 mg Q4HP PRN IV 11/03/24 03:30 11/03/24 07:23 4 MG Acetaminophen 650 mg Q6HP PRN PO 11/03/24 03:30 11/05/24 08:50 650 MG Aspirin 81 mg DAILY PO 11/03/24 10:00 11/05/24 08:48 81 MG Atorvastatin Calcium 40 mg HS PO 11/03/24 22:00 11/04/24 20:42 40 MG Insulin Human Lispro AC SC 11/03/24 17:00 Diagnostic Test (Pha) 1 strip ACHS 11/03/24 17:00 11/05/24 11:14 1 STRIP Dextrose 50 ml UD PRN IV 11/03/24 13:30 Metoprolol Succinate 25 mg DAILY PO 11/04/24 10:00 11/05/24 08:50 25 MG Nitroglycerin 0.4 mg Q5MINP PRN SL 11/04/24 09:30 Buprenorphine HCl 1 tab DAILY SL 11/05/24 10:00 Cancel Buprenorphine HCl 1 tab DAILY SL 11/05/24 10:00 11/05/24 08:50 1 TAB Examination: LUNGS:Normal, CVS:Normal, NEURO:Normal laboratory and microbiology Laboratory Tests 11/04/24 09:24 11/04/24 05:30 Test 11/04/24 05:30 Range/Units Serum Glucose 112 H 74-106 mg/dL Problem List/Assessment/Plan Problem List/Assessment/Plan Chest pain, coronary ischemia ruled out Chronic compensated HFmrEF, newly diagnosed Abnormal 12-lead electrocardiogram Hypertension Dyslipidemia Type 2 diabetes mellitus Chronic back pain Obesity Plan/Recommendation (Dr. Orlando) Transthoracic echocardiogram revealed LVEF 45-50% with global hypokinesis. Cardiac catheterization revealed clear coronaries. Continue GDMT for HFmrEF and uptitrate as tolerated. 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 There is no further cardiac work-up indicated at this time. Kindly call with any questions or concerns. Thank you for allowing us to care for this patient. This medical document was created using an electronic medical record system with voice recognition software and computerized dictation system. Although this document has been carefully reviewed, there might still be some phonetic and typographical errors. Occasional wrong-word or ``sound-alike substitutions may have occurred due to the inherent limitations of voice recognition software. These areas are purely typographical due to imperfections of the software programs and do not reflect any compromise in the patient's medical care. Please read the chart carefully and recognize, using context, where these substitutions have occurred. Plan discussed with: Patient, Other Date of Service: Nov 05, 2024 Billing Provider: JUSTINO ZEE Cardiology Common Codes: [id number] INP/OBS CARE(Mod) JUSTINO ZEE Nov 05, 2024 12:37
[2024-11-05 13:00] VITALS: BP 138/83; PULSE 67; RESP 20; TEMP 97.7; O2SAT 98
[2024-11-05] MEDS ORDERED: ASPI81TA28 PO (14:05)
[2024-11-05] MEDS ORDERED: MORP15TA PO (14:05)
[2024-11-05] MEDS ORDERED: EMPA1TAB PO (14:05)
[2024-11-05] MEDS ORDERED: METO25TA93 PO (14:05)
[2024-11-05] MEDS ORDERED: ATOR-507 PO (14:05)
--- NOTE | 2024-11-05 14:09 | DVHDS2 ---
Discharge Summary Date of Admission Nov 03, 2024 at 03:24 Date of Discharge: Nov 05, 2024 Labs/Diagnostic Data: Laboratory Results Test 11/05/24 05:53 11/04/24 09:24 11/04/24 05:30 11/03/24 07:15 POC Glucose 117 mg/dl (70-106) White Blood Count 7.9 10^3/uL (4.4-10.8) Red Blood Count 4.80 10^6/uL (4.5-5.90) Hemoglobin 14.7 g/dL (13.5-17.5) Hematocrit 43.0 % (41.0-53.0) Mean Corpuscular Volume 89.7 fL (80.0-100.0) Mean Corpuscular Hemoglobin 30.5 pg (28.0-32.0) Mean Corpuscular Hemoglobin Concent 34.0 g/dL (32.0-36.0) Red Cell Distribution Width 13.6 % (11.8-14.3) Platelet Count 256 10^3/uL (140-450) Mean Platelet Volume 7.1 fL (6.9-10.8) Neutrophils (%) (Auto) 53.6 % (37.0-80.0) Lymphocytes (%) (Auto) 38.3 % (10.0-50.0) Monocytes (%) (Auto) 6.2 % (0.0-12.0) Eosinophils (%) (Auto) 1.7 % (0.0-7.0) Basophils (%) (Auto) 0.2 % (0.0-2.0) Neutrophils # (Auto) 4.2 10 ^3/uL (1.6-8.6) Lymphocytes # (Auto) 3.0 10 ^3/uL (0.4-5.4) Monocytes # (Auto) 0.5 10 ^3/uL (0-1.3) Eosinophils # (Auto) 0.1 10 ^3/uL (0-0.8) Basophils # (Auto) 0 10 ^3/uL (0-0.2) Nucleated Red Blood Cells 0.1 % Prothrombin Time 10.9 sec (9.3-11.8) Prothrombin Time INR 1.03 (0.9-1.15) Activated Partial Thromboplast Time 26.4 SEC (24.5-34.5) Sodium Level 139 mmol/L (136-145) Potassium Level 4.0 mmol/L (3.5-5.1) Chloride Level 102 mmol/L (98-107) Carbon Dioxide Level 30 mmol/L (20-31) Anion Gap 7 (5-15) Blood Urea Nitrogen 16 mg/dL (9-23) Creatinine 1.04 mg/dL (0.700-1.30) Glomerular Filtration Rate Calc 80 mL/min (>90) BUN/Creatinine Ratio 15.4 (10.0-20.0) Serum Glucose 112 mg/dL (74-106) Calcium Level 9.0 mg/dL (8.7-10.4) Urine Color Light-yellow (Yellow) Urine Clarity Clear (Clear) Urine pH 5.5 (5.0-9.0) Urine Specific [place] 1.016 (1.001-1.035) Urine Protein Negative (Negative) Urine Ketones Negative (Negative) Urine Blood Negative /uL (Negative) Urine Nitrite Negative (Negative) Urine Bilirubin Negative (Negative) Urine Urobilinogen Normal mg/dL (Negative) Urine Leukocyte Esterase Negative /uL (Negative) Urine RBC 1 /hpf (0 - 3) Urine Microscopic WBC < 1 /HPF (0-3) Urine Squamous Epithelial Cells None seen /hpf (<5) Urine Bacteria None seen /hpf (None Seen) Urine Hyaline Casts Few /lpf (0 - 2) Urine Mucus Few (None Seen) Urine Glucose Normal mg/dL (Normal) Urine Opiates Screen Pos (NEGATIVE) Urine Fentanyl Screen Neg (NEGATIVE) Urine Barbiturates Screen Neg (NEGATIVE) Urine Phencyclidine Screen Neg (NEGATIVE) Urine Amphetamines Screen Neg (NEGATIVE) Urine Benzodiazepines Screen Neg (NEGATIVE) Urine Cocaine Screen Neg (NEGATIVE) Urine Cannabinoids Screen Neg (NEGATIVE) Test 11/03/24 03:19 11/03/24 00:23 Troponin I High Sensitivity < 3 ng/L (</=54) Hemoglobin A1c 6.9 % A1C (<5.7) B-Type Natriuretic Peptide 15.00 pg/mL (0-100) Triglycerides Level 254 mg/dL (< 150) Cholesterol Level 150 mg/dL (< 200) LDL Cholesterol 95 mg/dL (< 100) HDL Cholesterol 39 mg/dL (40-59) Thyroid Stimulating Hormone (TSH) 2.11 uIU/mL (0.55-4.78) Other Laboratory Tests 11/04/24 09:24 11/04/24 05:30 Brief Hx & Hospital Course: 63 yo M with HTN, NIDDM, admitted for chest pain. patient with worsening pressure like CP aggravated by activity and relieved by rest. no prior workup done. HFmrEF in echo, global hypokinesia. for cath today. CURES reviewed, out of suboxone. C with normal coronaries. started on GDMT. dc with morphine, will follow up with chronic pain (by PCP0. DC clinic in 7 days if needed refill in the interim. Condition at Discharge: Good Final Diagnosis/Problems List chest pain part of his chronic pain? possible CAD HTN NIDDM chronic pain on pain management s/p spinal stim dyspepsia? [facility] Dis[facility] Instruct/Medications Diet: Consistent carbohydrate, Cardiac 2g Na,low cholest Activity: No Restrictions, As Tolerated Scheduled Amitriptyline Hcl (Amitriptyline Hcl), 25 MG PO HS, (Reported) Aspirin (Aspirin Ec), 81 MG PO DAILY Atorvastatin Calcium (Lipitor), 1 TAB PO QPM Duloxetine HCl (Duloxetine HCl), 30 MG PO TID, (Reported) Empagliflozin (Jardiance), 10 MG PO DAILY Ibuprofen (Ibuprofen), 800 MG PO PRN, (Reported) Lisinopril (Lisinopril), 10 MG PO HS, (Reported) Metoprolol Succinate (Metoprolol Succinate Er), 1 TAB PO DAILY Morphine Sulfate (Morphine Sulfate Er), 15 MG PO BID, (Reported) Morphine Sulfate (Morphine Sulfate Cr), 15 MG PO TID, (Reported) Morphine Sulfate (Morphine Sulfate), 1 TAB PO TID Omeprazole (Gnp Omeprazole), 1 TAB PO DAILY, (Reported) Discharge Statement: "Patient was advised to return to the ER or call 911 if any headaches, dizziness, shortness of breath, chest pain, abdominal pain, bleeding, fevers, or worsening of medical condition. Patient was counseled about treatment plan, medications, possible side effects, patientverbalized understanding. All questions were answered to the best of my ability. This discharge took greater then 30 minutes in planning, reviewing documentation, counseling the patient, and discussing with other team members." ASSESSMENT ASSESSMENT Assessment chronic pain dyspepsia? [facility] Date of Service: Nov 05, 2024 Billing Provider: KERLINE KAT MD Common Visit Codes: 95219-DQF/OBS DISCH DAY >30min KERLINE KAT MD Nov 05, 2024 14:08
[2024-11-05 14:25] VITALS: BP 127/78; PULSE 64; RESP 18; TEMP 97.9; O2SAT 96
[2024-11-06] MEDS ORDERED: LISINOPRIL 5 MG TAB PO SCH (10:00)
[2024-11-06] MEDS ORDERED: EMPAGLIFLOZIN 10 MG TAB PO SCH (10:00)
== END 2024-11-05 16:32 | disposition home or self-care (01) | DRG 286 ==
LOC: EDBD 23:38 → ER 23:38 → OVERFLOW 11-03 03:24 → TELE-EAST 11-03 17:45
PROVIDERS: ADMIT Student in an Organized Health Care Education/Training Program; ATTEND Student in an Organized Health Care Education/Training Program
PROC: 4A023N7 Measurement of Cardiac Sampling and Pressure, Left Heart, Percutaneous Approach (ICD-10-PCS; principal; 2024-11-04)
PROC: B211YZZ Fluoroscopy of Multiple Coronary Arteries using Other Contrast (ICD-10-PCS; 2024-11-04)
PROC: B215YZZ Fluoroscopy of Left Heart using Other Contrast (ICD-10-PCS; 2024-11-04)
DX: R07.89 Other chest pain (principal); I50.21 Acute systolic (congestive) heart failure; G89.29 Other chronic pain; I25.10 Atherosclerotic heart disease of native coronary artery without angina pectoris; E11.9 Type 2 diabetes mellitus without complications; E66.9 Obesity, unspecified; E78.5 Hyperlipidemia, unspecified; I11.0 Hypertensive heart disease with heart failure; Z91.040 Latex allergy status; Z79.1 Long term (current) use of non-steroidal anti-inflammatories (NSAID); Z79.899 Other long term (current) drug therapy; Z79.84 Long term (current) use of oral hypoglycemic drugs; Z68.28 Body mass index [BMI] 28.0-28.9, adult; R10.13 Epigastric pain
CPT/HCPCS: 36415; 71045; 80048; 80061; 80307; 81001; 82962; 83036; 83880; 84443; 84484; 85025; 85610; 85730; 93005; 93306; 93458; 99152; G0378; J2250; J2405; Q9967